=== PATIENT | female | born 1965 | race African-American/Black ===

== ENCOUNTER 2019-05-11 15:29 | Emergency (ER) | payer MEDICAID ==
[~2019-05-11] VITALS: Ht 165.1 cm; Wt 120.0 kg
--- NOTE | 2019-05-11 15:50 | NUR ---
HOSTESS HOST: PT BROUGHT IN BY EMS. PT TO ROOM VIA [facility].
--- NOTE | 2019-05-11 16:18 | NUR ---
PT BIB EMS FOR BS GREATER THAN 600. PT CALLED EMS, WAS NOT FEELING WELL. HAD A CHILI CHEESEBURGER, FRIES, REG SODA FOR LUNCH, FELT N/V AFTER. MD AT BEDSIDE. IV ESTABLISHED PER EMS. 600 NS IN FIELD. PT DENIES AND DISTRESS AT THIS TIME. PT URINATED BEFORE UA WAS ORDERED.
[2019-05-11] MEDS ORDERED: METF10007 PO (16:22)
[2019-05-11 16:29] LABS: PH, VENOUS 7.345 pH (7.320-7.420)
[2019-05-11] MEDS ORDERED: SODIUM CHLORIDE FLUSH 10ML SYR IVF ONE (16:30)
[2019-05-11] MEDS ORDERED: SODIUM CHLORIDE 0.9% 1,000ML IVBOLUS ONE ×2 (16:30→18:00)
[2019-05-11] MEDS ORDERED: PLEASE ENTER HEIGHT AND WEIGHT MC SCH (16:30)
[2019-05-11] MEDS ORDERED: PLEASE ENTER ALLERGIES MC SCH (16:30)
[2019-05-11 16:44] LABS: ALBUMIN 4.5 g/dL (3.4-5.0); ANION GAP 13 mmol/L (5-15); CALCIUM 9.3 mg/dL (8.5-10.1); CHLORIDE 94 mmol/L (98-107)
[2019-05-11 16:47] LABS: ALANINE AMINOTRANSFERASE 27 U/L (12-78); ALKALINE PHOSPHATASE 74 U/L (45-117); BILIRUBIN,TOTAL 0.6 mg/dL (0.2-1.0); CREATININE 1.17 mg/dL (0.55-1.02); TOTAL PROTEIN 8.7 g/dL (6.4-8.2)
[2019-05-11 16:50] LABS: ACETONE, SERUM Moderate(40mg/dL) mg/dL (Negative)
--- NOTE | 2019-05-11 17:04 | NUR ---
LAB CRITICAL VALUE. BLOOD GLUCOSE 615. AWARE. PT AMBULATED TO BATHROOM. UA OBTAINED
[2019-05-11 17:11] LABS: BASOPHILS # (AUTO) 0.03 x10^3/uL (0-0.1); BASOPHILS % (AUTO) 1 % (0-1); EOSINOPHILS # (AUTO) 0.14 x10^3/uL (0-0.4); EOSINOPHILS % (AUTO) 2 % (1-7); LYMPHOCYTES # (AUTO) 1.23 x10^3/uL (1-3.4); LYMPHOCYTES % (AUTO) 16 % (22-44); MD SCAN; MEAN CORPUSCULAR HEMOGLOBIN 24.4 pg (27.0-34.8); MEAN CORPUSCULAR HGB CONC 31.6 g/dL (32.4-35.8); MEAN CORPUSCULAR VOLUME 77.2 fL (80-100); MEAN PLATELET VOLUME 10.6 fL (7.4-10.4); MONOCYTES # (AUTO) 0.45 x10^3/uL (0.2-0.8); MONOCYTES % (AUTO) 6 % (2-9); NEUTROPHILS # (AUTO) 5.86 x10^3/uL (1.8-6.8); NEUTROPHILS % (AUTO) 76 % (42-75); PLATELET COUNT 336 x10^3/uL (130-400); RED BLOOD COUNT 4.82 x10^6/uL (3.82-5.3); RED CELL DISTRIBUTION WIDTH 16.9 % (9.6-15.2)
[2019-05-11 17:25] LABS: MICROSCOPIC NOT IND
[2019-05-11 17:29] LABS: CULTURE INDICATED? NO
--- NOTE | 2019-05-11 18:20 | NUR ---
PT AMBULATED TO BATHROOM... CO OF INCREASED THIRST AND URINATION
[2019-05-11 19:11] VITALS: BP 131/85
--- NOTE | 2019-05-11 19:40 | NUR ---
PT AMBULATED TO BATHROOM W STEADY GATE
[2019-05-11] MEDS ORDERED: INSULIN SINGLE DOSE, ER SQ-INSULIN ONE (20:05)
[2019-05-11] MEDS ORDERED: INSULIN REGULAR 100 UNITS/ML, 3ML VIAL SQ-INSULIN ONE (20:30)
[2019-05-11 20:42] LABS: FREE T4 (FREE THYROXINE) 1.54 ng/dL (0.76-1.46)
--- NOTE | 2019-05-11 20:46 | NUR ---
EDUCATED ON HIGH BLOOD SUGAR SYMPTOMS AND DIABETES.
--- NOTE | 2019-05-11 20:47 | NUR ---
Patient/Caregiver given discharge instructions and they have confirmed that they understand the instructions. Patient ambulatory with steady gait.
[2019-05-13] MEDS ORDERED: DULO30CA2 PO (21:19)
[2019-05-13] MEDS ORDERED: LEVO100T5 PO (21:19)
[2019-05-13] MEDS ORDERED: LISI-170 PO (21:19)
[2019-05-16] MEDS ORDERED: FERR-51 PO (08:54)
[2019-05-16] MEDS ORDERED: LIDO700A20 TD (08:54)
[2019-05-16] MEDS ORDERED: INSU100V8 SQ (09:42)
== END 2019-05-11 20:48 | disposition home or self-care (01) ==
LOC: ED 20:15
DX: E11.65 Type 2 diabetes mellitus with hyperglycemia (principal); R11.10 Vomiting, unspecified; I10 Essential (primary) hypertension; E03.9 Hypothyroidism, unspecified; R42 Dizziness and giddiness
CPT/HCPCS: 36415; 80053; 81003; 82010; 82803; 84439; 84443; 85025; 96360; 96361; 96372; 99283; J1815; J7030

== ENCOUNTER 2019-06-05 11:43 | Emergency (ER) | payer MEDICAID ==
[~2019-06-05] VITALS: Ht 165.1 cm; Wt 125.8 kg
[~2019-06-05 11:43] MED LIST: DULO30CA2 PO; FERR-51 PO; INSU100V8 SQ; LEVO100T5 PO; LIDO700A20 TD; LISI-170 PO; METF10007 PO
--- NOTE | 2019-06-05 11:47 | NUR ---
no answer when called from lobby.
--- NOTE | 2019-06-05 12:20 | NUR ---
PT HERE FOR CONSTIPATION X 8 DAYS. PT REPORTS USING STOOL SOFTNERS AND ONLY SMALL TRACIE AND NOW HAS BLOOD WHEN WHIPING. PT REPORTS SHE FEELS HEMMOROIDS. PT REPORTS SHE HAS LOST HER APPETITE AND IS NAUSEAS. PT DENIES EMESIS AT THIS TIME. PT CONNECTED TO MONITORS AND CALL LIGHT IN REACH. AWAITING FURTHER ORDERS. VSS.
--- NOTE | 2019-06-05 12:22 | NUR ---
US TO BEDSIDE.
[2019-06-05] MEDS ORDERED: KETOROLAC 30 MG/1 ML ONE (12:26)
[2019-06-05] MEDS ORDERED: KETOROLAC 30 MG/1 ML IVPush ONE (12:30)
[2019-06-05] MEDS ORDERED: SODIUM CHLORIDE FLUSH 10ML SYR IVF ONE (12:30)
[2019-06-05 12:40] LABS: ALBUMIN 3.9 g/dL (3.4-5.0); ANION GAP 8 mmol/L (5-15); CALCIUM 9.1 mg/dL (8.5-10.1); CHLORIDE 105 mmol/L (98-107)
[2019-06-05 12:45] LABS: ALANINE AMINOTRANSFERASE 20 U/L (12-78); ALKALINE PHOSPHATASE 51 U/L (45-117); BILIRUBIN,TOTAL 0.5 mg/dL (0.2-1.0); CREATININE 0.81 mg/dL (0.55-1.02)
--- NOTE | 2019-06-05 12:45 | NUR ---
pt medicated per emar.
[2019-06-05 13:01] LABS: MEAN CORPUSCULAR HEMOGLOBIN 24.7 pg (27.0-34.8); MEAN CORPUSCULAR VOLUME 79.8 fL (80-100); MEAN PLATELET VOLUME 8.4 fL (7.4-10.4); PLATELET COUNT 353 x10^3/uL (130-400); RED CELL DISTRIBUTION WIDTH 18.5 % (9.6-15.2)
[2019-06-05 13:03] LABS: BASOPHILS # (AUTO) 0.03 x10^3/uL (0-0.1); BASOPHILS % (AUTO) 1 % (0-1); EOSINOPHILS # (AUTO) 0.23 x10^3/uL (0-0.4); EOSINOPHILS % (AUTO) 4 % (1-7); LYMPHOCYTES # (AUTO) 2.17 x10^3/uL (1-3.4); LYMPHOCYTES % (AUTO) 38 % (22-44); MD NO; MONOCYTES # (AUTO) 0.59 x10^3/uL (0.2-0.8); MONOCYTES % (AUTO) 10 % (2-9); NEUTROPHILS # (AUTO) 2.64 x10^3/uL (1.8-6.8); NEUTROPHILS % (AUTO) 47 % (42-75)
[2019-06-05] MEDS ORDERED: MORPHINE SULFATE 4 MG/ML, 1ML ONE (13:40)
[2019-06-05] MEDS ORDERED: MORPHINE SULFATE 4 MG/ML, 1ML IVPush ONE (14:00)
--- NOTE | 2019-06-05 14:19 | NUR ---
UA SENT TO LAB
[2019-06-05 14:47] LABS: CULTURE INDICATED? YES; MICROSCOPIC INDICATED
[2019-06-05 15:21] VITALS: BP 124/64
--- NOTE | 2019-06-05 16:14 | NUR ---
Patient/Caregiver given discharge instructions and they have confirmed that they understand the instructions. Patient ambulatory with steady gait.
== END 2019-06-05 16:16 | disposition home or self-care (01) ==
LOC: ED 14:35
DX: K59.00 Constipation, unspecified (principal); E11.65 Type 2 diabetes mellitus with hyperglycemia; I10 Essential (primary) hypertension; E03.9 Hypothyroidism, unspecified; R10.12 Left upper quadrant pain; R10.32 Left lower quadrant pain; R11.2 Nausea with vomiting, unspecified; R30.0 Dysuria
CPT/HCPCS: 36415; 74021; 74176; 76770; 80053; 81001; 83690; 85025; 87077; 87086; 87186; 96374; 96375; 99284; J1885; J2270